=== PATIENT | female | born 1985 | race Two or more races ===

== ENCOUNTER 2024-02-04 12:09 | Observation (INO) | payer MEDICAID ==
[2024-02-04] MEDS ORDERED: PREN1TAB71 OR (13:49)
== END 2024-02-04 14:10 | disposition home or self-care (01) ==
LOC: UNDOADMOB 12:09 → LDRP 12:09
PROVIDERS: ADMIT Obstetrics & Gynecology; ATTEND Obstetrics & Gynecology
DX: O24.419 Gestational diabetes mellitus in pregnancy, unspecified control (principal); Z3A.35 35 weeks gestation of pregnancy
CPT/HCPCS: 59025; 76818; 81002; 82948; 82962; G0378

== ENCOUNTER 2024-02-11 12:00 | Observation (INO) | payer MEDICAID ==
[~2024-02-11 12:00] MED LIST: PREN1TAB71 OR
== END 2024-02-11 15:10 | disposition home or self-care (01) ==
LOC: UNDOADMOB 12:00 → LDRP 12:00 → UNDODISOB 15:10
PROVIDERS: ADMIT Obstetrics & Gynecology; ATTEND Obstetrics & Gynecology
DX: O24.419 Gestational diabetes mellitus in pregnancy, unspecified control (principal); O26.893 Other specified pregnancy related conditions, third trimester; M79.89 Other specified soft tissue disorders; Z3A.36 36 weeks gestation of pregnancy
CPT/HCPCS: 59025; 76818; 81002; 82948; 82962; 94760; G0378

== ENCOUNTER 2024-02-18 08:27 | Observation (INO) | payer MEDICAID | END 2024-02-18 16:01 | disposition home or self-care (01) | LOC: LDRP 14:09 → UNDOADMOB 14:09 → LDRP 14:12 | PROVIDERS: ADMIT Obstetrics & Gynecology; ATTEND Obstetrics & Gynecology | DX: O24.419 Gestational diabetes mellitus in pregnancy, unspecified control (principal); Z3A.37 37 weeks gestation of pregnancy | CPT/HCPCS: 59025; 76818; 81002; 82948; 82962; 94760; G0378 ==

== ENCOUNTER 2024-02-25 10:08 | Observation (INO) | payer MEDICAID | END 2024-02-25 12:17 | disposition home or self-care (01) | LOC: LDRP 10:08 → UNDOADMOB 10:08 → LDRP 10:14 → UNDODISOB 12:17 | PROVIDERS: ADMIT Obstetrics & Gynecology; ATTEND Obstetrics & Gynecology | DX: O24.419 Gestational diabetes mellitus in pregnancy, unspecified control (principal); O62.9 Abnormality of forces of labor, unspecified; O99.891 Other specified diseases and conditions complicating pregnancy; M54.9 Dorsalgia, unspecified; Z3A.38 38 weeks gestation of pregnancy | CPT/HCPCS: 59025; 76818; 81002; 82948; 82962; 94760; G0378 ==

== ENCOUNTER 2024-02-28 16:23 | Observation (INO) | payer MEDICAID ==
[~2024-02-28] VITALS: Ht 154.9 cm; Wt 98.0 kg
== END 2024-02-28 18:48 | disposition home or self-care (01) ==
LOC: LDRP 16:23
PROVIDERS: ADMIT Obstetrics & Gynecology; ATTEND Obstetrics & Gynecology
DX: O24.419 Gestational diabetes mellitus in pregnancy, unspecified control (principal); O40.3XX0 Polyhydramnios, third trimester, not applicable or unspecified; Z3A.39 39 weeks gestation of pregnancy
CPT/HCPCS: 59025; 76818; 81002; 82948; 82962; 94760; G0378

== ENCOUNTER 2024-03-02 08:20 | Inpatient (IN) | payer MEDICAID ==
[~2024-03-02] VITALS: Ht 30.5 cm; Wt 0.5 kg
[2024-03-02] MEDS ORDERED: BUTORPHANOL TARTRATE 2 MG/1 ML VIAL IV PRN ×2 (11:00)
[2024-03-02] MEDS ORDERED: LIDOCAINE 2%HCL (LOCAL ANESTH.) INJ 20ML MDV IJ PRN (11:00)
[2024-03-02 11:28] LABS: Basophils # (auto) 0 10 ^3/uL (0-0.2); Basophils % (auto) 0.2 % (0.0-2.0); Eosinophils # (auto) 0 10 ^3/uL (0-0.8); Eosinophils % (auto) 0.3 % (0.0-7.0); Hematocrit 41.8 % (36.0-46.0); Hemoglobin 13.7 g/dL (12.2-16.2); Lymphocytes # (auto) 1.5 10 ^3/uL (0.4-5.4); Mean Corpuscular Hgb Conc. 32.8 g/dL (32.0-36.0); Mean Corpuscular Volume 85.5 fL (80.0-100.0); Monocytes # (auto) 0.6 10 ^3/uL (0-1.3); Monocytes % (auto) 6.6 % (0.0-12.0); Neutrophils # (auto) 7.5 10 ^3/uL (1.6-8.6); Neutrophils % (auto) 77.9 % (37.0-80.0); Nucleated Red Blood Cells % 0.1 %; Red Blood Cells 4.89 10^6/uL (4.0-5.20); Red Cell Distribution Width 16.4 % (11.8-14.3); White Blood Cell 9.7 10^3/uL (4.4-10.8)
[2024-03-02 11:43] LABS: INR 0.92 (0.9-1.15); Partial Thromboplastin Time 26.3 SEC (24.5-34.5); Prothrombin Time 9.8 sec (9.3-11.8)
[2024-03-02 11:55] LABS: Alanine Aminotransferase 28 U/L (7-40); Albumin 3.8 g/dL (3.2-4.8); Alkaline Phosphatase 174 U/L (46-116); Anion Gap 6 (5-15); Aspartate Aminotransferase 28 U/L (13-40); Bilirubin, Total 0.4 mg/dL (0.2-1.0); Blood Urea Nitrogen 9 mg/dL (9-23); Calcium 9.5 mg/dL (8.5-10.1); Carbon Dioxide 22 mmol/L (20-30); Chloride 110 mmol/L (98-107); Glucose 70 mg/dL (74-106); Potassium 3.8 mmol/L (3.5-5.1); Sodium 138 mmol/L (136-145)
[2024-03-02 13:10] LABS: Urine Bacteria FEW /hpf (None Seen); Urine Blood Negative /uL (Negative); Urine Clarity Turbid (Clear); Urine Color Yellow (Yellow); Urine Mucus FEW (None Seen); Urine Protein, UAD TRACE (Negative); Urine Specific Gravity 1.026 (1.001-1.035); Urine Urobilinogen Normal (Negative); Urine WBC 18 /hpf (0 - 5)
[2024-03-02 13:21] LABS: Amphetamine Screen, Urine Neg (NEGATIVE); Barbiturate Scree,Urine Neg (NEGATIVE); Benzodiazephine Screen, Urine Neg (NEGATIVE); Cannabinoid Screen, Urine Neg (NEGATIVE); Cocaine Screen, Urine Neg (NEGATIVE); Opiate Scree,Urine Neg (NEGATIVE)
[2024-03-02 13:22] LABS: Phencyclidine Screen, Urine Neg (NEGATIVE)
[2024-03-02] MEDS: miSOPROStol 50 MCG per PRE-CUT 1/2 TAB PO PRN (15:40)
[2024-03-02] MEDS: LACTATED RINGER'S 1,000 ML IV SCH (15:41)
[2024-03-02] MEDS: DERMOPLAST 60ML BOTTLE TOP PRN (19:02)
[2024-03-02] MEDS: PHISODERM TOP SOLN 240ML BTL TOP PRN (19:02)
[2024-03-02] MEDS: WITCH HAZEL-GLYCERIN PAD TOP PRN (19:03)
[2024-03-02] MEDS ORDERED: ONDANSETRON HCL 4 MG/2 ML VIAL ONE (19:43)
[2024-03-02] MEDS ORDERED: DexAMETHasone SOD PHOS 10MG/1ML VIAL INJ ONE (19:43)
[2024-03-02] MEDS ORDERED: oxyTOCIN 10 UNIT/ML 10ML VIAL ONE (19:43)
[2024-03-02] MEDS ORDERED: MORPHINE SULF PF 5 MG/10 ML VIAL ONE (19:44)
[2024-03-02] MEDS ORDERED: fentaNYL CITRATE 100 MCG/2 ML VL ONE (19:44)
[2024-03-02] MEDS: ceFAZolin 2 GM/D5W50ml 50 ML IV ONE ×2 (19:45→23:17)
[2024-03-02] MEDS ORDERED: HYDR-4902 PO (20:43)
[2024-03-02] MEDS ORDERED: IBUP-1456 PO (20:43)
[2024-03-02] MEDS ORDERED: DOCU-94 PO (20:43)
[2024-03-02] MEDS ORDERED: ceFAZolin 1GM/50ML 50 ML IV SCH (20:45)
[2024-03-02] MEDS: GUM (CHEWING) 1 GUM CHEW CHEW ONE (20:45)
[2024-03-02] MEDS ORDERED: LACT. RINGERS/OXYTOCIN 20UNITS 1,000 ML IV ONE (20:45)
[2024-03-02] MEDS ORDERED: ONDANSETRON HCL 4 MG/2 ML VIAL IV PRN ×2 (20:45→22:00)
[2024-03-02] MEDS ORDERED: SODIUM CHLORIDE LOCK 10 ML ONE (20:52)
[2024-03-02] MEDS ORDERED: PHENYLEPHRINE HCL 10 MG/ML VL ONE (20:52)
[2024-03-02] MEDS: CARBOPROST TROMETHAMINE 250 MCG/1ML VIAL IM ONE ×2 (20:59→21:05)
[2024-03-02 21:45] VITALS: O2SAT 96
[2024-03-02] MEDS ORDERED: diphenhdrAMINE HCL 50 MG/1 ML VL IV PRN (22:00)
[2024-03-02] MEDS ORDERED: NALOXONE HCL 0.4 MG/ML VIAL IV PRN (22:00)
[2024-03-02] MEDS ORDERED: HYDROmorphone HCL 2 MG/ML VL/or syr IV PRN (22:00)
[2024-03-02] MEDS: NALBUPHINE HCL 10 MG/1ml INJECTION IV ONE (22:00)
[2024-03-02 22:18] VITALS: BP 109/59; PULSE 60; RESP 14; O2SAT 98
[2024-03-02 23:00] VITALS: BP 109/54; PULSE 60; RESP 14; TEMP 98.6; O2SAT 97
[2024-03-02] MEDS: DIPHENOXYLATE W/ATROPINE 2.5 MG TAB ONE (23:19)
[2024-03-02 23:20] VITALS: BP 109/54; PULSE 60; RESP 14; O2SAT 97
[2024-03-02 23:59] LABS: Basophils # (auto) 0 10 ^3/uL (0-0.2); Basophils % (auto) 0.3 % (0.0-2.0); Eosinophils # (auto) 0 10 ^3/uL (0-0.8); Eosinophils % (auto) 0.1 % (0.0-7.0); Hematocrit 38.7 % (36.0-46.0); Hemoglobin 12.7 g/dL (12.2-16.2); Lymphocytes # (auto) 0.8 10 ^3/uL (0.4-5.4); Lymphocytes % (auto) 4.1 % (10.0-50.0); Mean Corpuscular Hgb Conc. 32.9 g/dL (32.0-36.0); Mean Corpuscular Volume 85.2 fL (80.0-100.0); Monocytes # (auto) 0.2 10 ^3/uL (0-1.3); Monocytes % (auto) 1.3 % (0.0-12.0); Neutrophils # (auto) 17.5 10 ^3/uL (1.6-8.6); Neutrophils % (auto) 94.2 % (37.0-80.0); Nucleated Red Blood Cells % 0.1 %; Red Blood Cells 4.54 10^6/uL (4.0-5.20); Red Cell Distribution Width 16.6 % (11.8-14.3); White Blood Cell 18.5 10^3/uL (4.4-10.8)
[2024-03-03] VITALS (21 sets, daily range): BP systolic 90–144; BP diastolic 49–61; PULSE 53–75; RESP 14–18; TEMP 97.9–98.8; O2SAT 95–100
[2024-03-03] MEDS ORDERED: KETOROLAC TROMETH 30 MG/ML 1ML VIAL IV PRN (00:45)
[2024-03-03] MEDS ORDERED: ACETAMINOPHEN IV 1000 MG/100ML (10MG/ML) IV PRN (00:45)
[2024-03-03] MEDS: ceFAZolin 1GM/50ML 50 ML IV SCH (04:05)
[2024-03-03] MEDS: LACTATED RINGER'S 1,000 ML IV ONE (04:06)
[2024-03-03 07:00] LABS: Hematocrit 38.3 % (36.0-46.0); Hemoglobin 12.8 g/dL (12.2-16.2); Mean Corpuscular Hemoglobin 28.4 pg (28.0-32.0); Mean Corpuscular Hgb Conc. 33.5 g/dL (32.0-36.0); Mean Corpuscular Volume 84.7 fL (80.0-100.0); Red Blood Cells 4.52 10^6/uL (4.0-5.20); Red Cell Distribution Width 16.7 % (11.8-14.3); White Blood Cell 18.2 10^3/uL (4.4-10.8)
[2024-03-03 07:07] LABS: RPR Non Reactive (Non Reactive)
[2024-03-03 07:28] LABS: Band Neutrophils % (manual) 0; Basophils % (manual) 0 (0.0-2.0); Blast Cells 0; Eosinophils % (manual) 0 (0-7); Metamyelocytes % 0; Myelocytes % 0; Promyelocytes % 0; Reactive Lymphocytes 0
[2024-03-03] MEDS: ACETAMINOPHEN IV 1000 MG/100ML (10MG/ML) IV PRN (08:46)
[2024-03-03 11:07] LABS: Lymphocytes % (manual) 4 (10.0-50.0); Monocytes % (manual) 4 (0-12); Platelet Estimate Adequate
[2024-03-03] MEDS ORDERED: BISACODYL 10 MG RECT SUPP PR PRN (12:30)
[2024-03-03] MEDS ORDERED: HYDROcodone-ACET 5/325MG TAB PO PRN ×2 (12:30)
[2024-03-03] MEDS: SIMETHICONE 80 MG CHEWABLE TABLET PO SCH (18:05)
[2024-03-03] MEDS: IBUPROFEN 800 MG TAB PO PRN (20:32)
[2024-03-03] MEDS: DOCUSATE SOD 100 MG CAP PO SCH (21:51)
[2024-03-04 03:00] VITALS: BP 113/63; PULSE 70; RESP 16; TEMP 97.7; O2SAT 96
[2024-03-04 07:00] VITALS: BP 119/58; PULSE 67; RESP 18; TEMP 98.1; O2SAT 97
[2024-03-04 07:15] VITALS: PULSE 67; RESP 18; O2SAT 95
[2024-03-04] MEDS: DOCUSATE CALCIUM 240 MG CAP PO SCH (10:04)
[2024-03-04 11:20] VITALS: BP 114/61; PULSE 65; RESP 14; TEMP 98.7; O2SAT 97
[2024-03-04 14:45] VITALS: BP 108/52; PULSE 69; RESP 14; TEMP 98.8; O2SAT 98
[2024-03-04 18:52] VITALS: BP 120/72; PULSE 90; RESP 16; TEMP 98; O2SAT 98
[2024-03-05 18:06] LABS: Treponema pallidum Ab (FTA-Ab) Non Reactive (Non Reactive)
== END 2024-03-04 22:05 | disposition home or self-care (01) | DRG 540 ==
LOC: LDRP 08:20 → OBSVTOIN 10:56 → LDRP 17:32
PROVIDERS: ADMIT Obstetrics & Gynecology; ATTEND Obstetrics & Gynecology
PROC: 3E0DXGC Introduction of Other Therapeutic Substance into Mouth and Pharynx, External Approach (ICD-10-PCS; 2024-03-02)
PROC: 10D00Z1 Extraction of Products of Conception, Low, Open Approach (ICD-10-PCS; principal; 2024-03-02 20:36)
DX: O24.420 Gestational diabetes mellitus in childbirth, diet controlled (principal); O99.214 Obesity complicating childbirth; E66.01 Morbid (severe) obesity due to excess calories; O76 Abnormality in fetal heart rate and rhythm complicating labor and delivery; O69.81X0 Labor and delivery complicated by cord around neck, without compression, not applicable or unspecified; Z3A.39 39 weeks gestation of pregnancy; Z37.0 Single live birth
CPT/HCPCS: 36415; 59025; 76818; 80053; 80307; 81001; 81002; 82948; 82962; 85007; 85025; 85027; 85610; 85730; 86592; 86706; 86765; 86803; 86850; 86900; 86901; 94760; 94762; 96360; 96361; G0378; J0131; J1100; J2405; J2590